=== PATIENT | male | born 1960 | race Caucasian/White ===

== ENCOUNTER → 2020-12-22 | Outpatient (CLI) | payer OTHER ==
[~2020-12-22] MED LIST: ADVIL200 M3 PO; ASPIRIN325; ASPIRIN325 PO; FLEXERIL PO; LISINOPRIL20 MG PO; NAPROSYN500 MG PO; OMEPRAZOLE 20 M20 M1 PO; PAXIL10 MG; PAXIL20 MG PO
[2020-12-22 11:25] LABS: HEMATOCRIT 40.9 % (42.0-52.0); HEMOGLOBIN 14.2 gm/dL (14.0-18.0); MCHC 34.8 g/dL (28.0-37.0); RBC 4.45 mil/uL (4.50-6.00); RDW 13.3 % (10.5-14.5); WBC 3.9 thou/uL (4.0-11.0)
[2020-12-22 11:26] LABS: URINE BILIRUBIN NEGATIVE (Negative); URINE BLOOD NEGATIVE (Negative); URINE CLARITY CLEAR; URINE COLOR YELLOW; URINE GLUCOSE-RANDOM* NEGATIVE (Negative); URINE KETONES NEGATIVE (Negative); URINE LEUKOCYTES-REFLEX NEGATIVE (Negative); URINE NITRITE-REFLEX NEGATIVE (Negative); URINE PROTEIN (DIPSTICK) NEGATIVE (Negative); URINE SPECIFIC GRAVITY <= 1.005 (1.005-1.035); URINE UROBILINOGEN 0.2 E.U./dl (0.2-1.0)
[2020-12-22 11:37] LABS: ALBUMIN 4.1 g/dL (3.4-5.0); CALCIUM 9.4 mg/dL (8.5-10.1); POTASSIUM 4.8 mmol/L (3.5-5.1)
[2020-12-22 11:40] LABS: PROTIME 10.9 Seconds (10.5-12.1)
--- NOTE | 2020-12-22 13:51 | EKG ---
[address] [address] ELECTROCARDIOGRAM REPORT Name: PAULCLINTON CHARISSE [id number] Admission: 12/22/20 Attend Phys: Clinton Robledo MD Discharge: Date of : 56 Report #: [id number] [facility] Test Date: 2020-12-22 Test Time: 11:13:40 Pat Name: CLINTON MILLER Department: Room: Gender: Server Programmer: MIRNA STACY : 1960 Requested By: Clinton Robledo Order Number: [id number] MD: Real Brown Measurements Intervals [place] Rate: 65 P: 0 GA: 205 QRS: -51 QRSD: 126 T: 19 QT: 407 QTc: 424 Interpretive Statements Sinus rhythm RBBB and LAFB Compared to ECG 12/17/2014 23:35:14 No significant change Electronically Signed On 12-22-2020 13:50:49 CDT by Real Brown [email or web address] <ELECTRONICALLY SIGNED> By: Real Brown MD 12/22/20 1350 1113 1113 Real Brown MD /JOBY
== END ==
LOC: PAC 10:28
PROVIDERS: ATTEND Orthopaedic Surgery Sports Medicine
DX: Z01.812 Encounter for preprocedural laboratory examination (principal); Z01.810 Encounter for preprocedural cardiovascular examination; M17.11 Unilateral primary osteoarthritis, right knee; I10 Essential (primary) hypertension; I45.2 Bifascicular block

== ENCOUNTER 2021-01-02 08:10 | Observation (INO) | payer OTHER ==
[~2021-01-02] VITALS: Ht 165.1 cm; Wt 70.3 kg
[2021-01-02 09:35] VITALS: BP 149/93
[2021-01-02 15:20] VITALS: BP 124/84
--- NOTE | 2021-01-02 16:04 | O ---
[facility] [place] [address] OPERATIVE REPORT Name: CLINTON MILLER Room #: 434-P [facility]#: [id number] Admission: 01/02/21 Attend Phys: Clinton Robledo MD Discharge: Date of : 56 Report #: [id number] THIS REPORT FOR: cc: Micah Shetty MD, Thomas M. MD McCabe,Clinton Blankenship MD ~ DATE OF SERVICE: 01/02/2021 SERVICE: Orthopedics. FACILITY: [facility]. SURGEON: Clinton Robledo MD SEWER TAPPER: Casandra Briones. INDICATIONS FOR SEWER TAPPER: Exposure, retraction, provisional and final implant fixation and closure. PREOPERATIVE DIAGNOSIS: Severe right knee osteoarthritis. POSTOPERATIVE DIAGNOSES: Severe right knee osteoarthritis. PROCEDURE PERFORMED: 1. Right total knee arthroplasty. 2. Computer navigated robotic-assisted arthroplasty. COMPLICATIONS: None. DRAINS: None. SPECIMENS: None. ANESTHESIA: General with regional. IMPLANTS: [employer] Oxinium Journey II size 6 femoral component with size 6 tibial component and 10 mm poly insert with 32 mm patellar button. HISTORY: The patient is a 60-year-old gentleman with history of advanced progressive right knee osteoarthritis, had failed conservative measures including rest, activity modifications, physical therapy, oral medicines, intra-articular injections and home exercises. He had pain that was affecting his activities of daily living and had x-rays, which showed severe lateral compartment joint space narrowing, particularly in flexion with sclerosis and small osteophytes in the patellofemoral joint. He had symptoms that were localized to both the lateral compartment and the patellofemoral joint with even [facility] [address] [place] [address] OPERATIVE REPORT Name: CLINTON MILLER Room #: 434-P [facility].#: [id number] Admission: 01/02/21 Attend Phys: Clinton Robledo MD Discharge: Date of : 56 Report #: [id number] some medial-sided symptoms too, so he was indicated for total knee arthroplasty. Risks, benefits, alternatives and indications for surgery were discussed with him detail. Risks include but not limited to pain, bleeding, infection, injury to nerves or blood vessels, need for further surgery, stiffness, persistent pain despite surgical intervention as well as complications related to anesthesia. Despite the risks, he wished to proceed. DESCRIPTION OF PROCEDURE: After right lower extremity was correctly identified in the preoperative holding area as the operative extremity, the patient underwent regional nerve block. He was then taken to the operating room where general anesthesia was induced without complications. He was padded appropriately. Prophylactic antibiotics were administered in appropriate time. Tourniquet was applied to right leg. Right lower extremity was then prepped and draped in standard sterile fashion. Timeout procedure performed. Esmarch were used, tourniquet inflated to 250 mmHg. An anterior approach was made with medial parapatellar arthrotomy. There was a significant effusion present. There were osteophytes all along the medial aspect of the joint, both the tibia and the femur, and the patella was encircled with osteophytes as well. These were resected with a rongeur. There was arthritis affecting the patellofemoral, medial and lateral compartments, most severely in the posterior aspect of the lateral compartment where there appeared to be even a focal area potentially of avascular necrosis, but there was no fracture or instability of the condyle. The anterior horns of menisci were resected, the cruciates were resected and then we placed the checkpoints and the half pins and initiated and [employer] Navio robotic-assisted computer navigation to map out the patient's [place] anatomy and then select the optimal position. His primary pathology is posterolateral and so he had a significant medial lateral mismatch, particularly in flexion, and so we spent some additional time working with the software, selecting the optimal sized implant to best balance his knee and received good input from the software in order to optimize this and then felt that the final plan was very appropriate for balancing flexion and extension medially and laterally. The bur was then used with the Navio to perform the distal femoral resection and a 4-in-1 cutting block was used to mill the femur accordingly. The tibia was then prepared in the standard fashion using the Navio to appropriately set the tibial slope and height and then we proceeded with assessing the medial and lateral balancing in flexion and extension with the sizing block and I felt that the knee was overall well balanced and would be best served with a 10 poly. So the tibia was then prepared. The trials were placed, the notch was prepared on the femur and then the 10 trial poly was placed. The knee was placed into extension and the patella was prepared for a 32 mm button. Note that after sizing block usage the posterior capsule was injected with the periarticular injection cocktail. I then did use the Navio again with the trials in place to assess the balancing and was very happy with how the mapping worked out considering the severity of [facility] [address] [place] [address] OPERATIVE REPORT Name: CLINTON MILLER Room #: 434-P [facility]#: [id number] Admission: 01/02/21 Attend Phys: Clinton Robledo MD Discharge: Date of : 56 Report #: [id number] the mismatch, which was about 6-8 mm asymmetry medial to lateral in the flexion position. The knee was well balanced based on the Navio assessment as well as intraoperative visual and manual assessment. So the final implants were selected, the trials were removed, the knee was copiously irrigated and then prepared for cementation of the implants, and those were placed accordingly. The knee was placed in full extension. The rest of the periarticular injection cocktail was then injected around the knee. Tourniquet was let down. Hemostasis was achieved while the cement cured. The excess cement was resected. I evaluated the knee once more, under visual and manual inspection in terms of balancing medial and lateral in flexion and extension. I was happy with the balancing, so we went with the final 10 poly, irrigated the knee once more and then snapped the poly into position and then took it through a final range of motion. The knee was once more thoroughly irrigated and the arthrotomy was closed over a gram of vancomycin powder with [id number] stitches with 0 Vicryl suture. Skin was closed with 2-0 Vicryl followed by running subcuticular 3-0 Monocryl. Dermabond and sterile dressing was applied followed by a negative pressure wound dressing and then a thigh-high compression stocking followed by PolarCare device. The patient was then awakened from anesthesia and taken to recovery room in stable condition. No complications. All counts were correct. <ELECTRONICALLY SIGNED> By: Clinton Robledo MD 01/02/21 1604 1320 1353 Clinton Robledo MD /nt
--- NOTE | 2021-01-02 16:15 | NUR ---
ASSUMED PT CARE AT 1520. PT IS ALERT & ORIENTED X4. PT HAS R WRIST 20 GAUGE. PT HAS POLAR CARE, BILATERAL THIGH HIGH [employer]LA [employer]OSES, EDDIE DRESSING AND SCD. PT HAS 2L O2 NC. FINISHED ADMISSION. PT AT THE BEDSIDE. NO C/O OF PAIN, NAUSEA AND VOMITING. PT ON THE BED, BED ON THE LOWEST POSITION, SIDE RAILS UP, CALL LIGHT WITHIN REACH. WILL CONTINUE TO MONITOR PT. FOLLOW POC.
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
[2021-01-02 19:10] VITALS: BP 146/98
[2021-01-03 00:10] VITALS: BP 145/94
--- NOTE | 2021-01-03 00:20 | NUR ---
ASSESSED AT START OF SHIFT PT A&OX4. DENIES PAIN, NAUSEA AND VOMITING. MEDICARE BILLER NIGHT CLERK AUDITOR STOPPED BY TO SEE PT PER CONSULT. POLAR PACK, SCD'S AND TEDHOSE IN PLACE. URINAL AT BEDSIDE. FALL PREC IN PLACE AND CALL LIGHT WITHIN REACH. WILL CONT TO MONITOR.
[2021-01-03 03:20] VITALS: BP 133/83
[2021-01-03 06:00] LABS: HEMATOCRIT 35.6 % (42.0-52.0); MCH 31.5 pg (26.0-34.0); MCHC 33.7 g/dL (28.0-37.0); MCV 93.5 fL (80.0-100.0); RBC 3.8 mil/uL (4.50-6.00); RDW 12.8 % (10.5-14.5); WBC 9.1 thou/uL (4.0-11.0)
[2021-01-03 06:21] LABS: CALCIUM 7.8 mg/dL (8.5-10.1); POTASSIUM 4.1 mmol/L (3.5-5.1)
[2021-01-03 08:22] VITALS: BP 121/83
--- NOTE | 2021-01-03 10:14 | NUR ---
ASSUMED PT CARE THIS AM. PT IS ALERT & ORIENTED X4. PT HAS IV SITE ON R WRIST SALINE LOCKED AND USES URINAL. PT HAS POLAR CARE, BILATERAL CARLA HOSES THIGH HIGH, EDDIE DRESSING, SCD. PTIS ON ROOM AIR. PT C/O OF PAIN AND GIVEN PAIN MEDICATION PER PT REQUEST. PT ON THE BED AWAITING FOR PHYSICAL THERAPY. WILL CONTINUE TO MONITOR PT. FOLLOW POC.
[2021-01-03 11:07] VITALS: BP 121/83
== END 2021-01-03 16:35 | disposition home or self-care (01) ==
LOC: OR → TBA 08:10 → OR 08:10 → TBA 08:13 → OR 09:12 → EDSTATUS 14:41 → PRE 14:49 → 4S 15:19 → EDSTATUS 15:26 → OR 16:01 → 4S 16:02 → OR 17:32 → 4S 01-03 16:35
PROVIDERS: ADMIT Orthopaedic Surgery Sports Medicine; ATTEND Orthopaedic Surgery Sports Medicine
DX: M17.11 Unilateral primary osteoarthritis, right knee (principal); Z20.822 Contact with and (suspected) exposure to COVID-19; I10 Essential (primary) hypertension; K21.9 Gastro-esophageal reflux disease without esophagitis; F41.9 Anxiety disorder, unspecified; Z79.82 Long term (current) use of aspirin; Z79.899 Other long term (current) drug therapy
CPT/HCPCS: 50010; 50101; 50415; 50954; 51130; 51225; 51320; 52001; 52282; 53000; 53078; 53365; 54118; 56527; 56528; 57095; 57103; 57110; 57127; 57180; 62110; 62900; 64043; 65060; 70005